=== PATIENT | male | born 1995 ===

== ENCOUNTER 2017-10-03 23:39 | Inpatient (IN) | payer SELFPAY ==
[2017-10-04] MEDS ORDERED: Lorazepam 2 MG/ML VIAL ONE ×3 (00:07→06:09)
[2017-10-04 00:27] LABS: #Lymphocytes 0.9 thou/uL (1.20-3.40); #Monocytes 0.4 thou/uL (0.11-0.59); #Neutrophils 8.9 thou/uL (1.40-6.50); %Basophils 0.4 % (0.0-1.0); %Eosinophils 0.1 % (0.0-10.0); %Monocytes 3.7 % (0.0-10.0); Hematocrit 48.5 % (42.0-52.0); Mean Platelet Volume 7.6 fL (7.4-10.4); Red Blood Cell (RBC) Count 5.02 mill/uL (4.70-6.10); White Blood Cell (WBC) Count 10.2 thou/uL (4.8-10.8)
[2017-10-04 00:46] LABS: ALT (SGPT) 24 U/L (8-55); AST (SGOT) 21 U/L (5-34); Alkaline Phosphatase 78 U/L (40-150); Anion Gap 16 mmol/L (10-20); BUN (Urea Nitrogen) 12 mg/dL (8.9-20.6); Bilirubin, Total 0.8 mg/dL (0.2-1.2); CK (CPK) 265 U/L (30-200); Calc. Creatinine Clearance 0 mL/min (70-130); Calcium 9.9 mg/dL (7.8-10.44); Carbon Dioxide 22 mmol/L (22-29); Chloride 103 mmol/L (98-107); Estimated GFR-MDRD Greater than 90; Globulin 2.5 g/dL (2.4-3.5); Magnesium 2.2 mg/dL (1.6-2.6); Protein, Total 7.1 g/dL (6.0-8.3)
[2017-10-04 00:47] LABS: Acetaminophen Less than 6.0 mcg/mL (10.0-30.0); Salicylate Less than 8.0 mg/dL (15.0-30.0)
[2017-10-04 00:49] LABS: Troponin I Less than 0.010 ng/mL (< 0.028)
[2017-10-04 01:53] LABS: Bilirubin Negative (Negative); Blood, Urine Negative (Negative); Glucose, Urine (Dipstick) 100 mg/dL (Negative); Ketone, Urine 40 mg/dL (Negative); Nitrite Negative (Negative); Protein, Urine (Dipstick) Negative (Neg-Trace); Urobilinogen 0.2 mg/dL (0.2-1.0)
[2017-10-04 02:14] LABS: Amphetamine Detected (NotDetected); Methadone Not Detected (NotDetected); Methamphetamine Not Detected (NotDetected)
[2017-10-04] MEDS ORDERED: Acetaminophen 325 MG TAB PO PRN (04:47)
[2017-10-04] MEDS ORDERED: Acetaminophen 650 MG Suppository PR PRN (04:47)
[2017-10-04] MEDS ORDERED: Senokot 8.6 MG TAB PO PRN (04:47)
[2017-10-04] MEDS ORDERED: Calcium Carbonate 500 MG ChewTAB PO PRN (04:47)
[2017-10-04] MEDS ORDERED: Ondansetron ODT 4 MG TAB PO PRN (04:47)
[2017-10-04] MEDS ORDERED: Ondansetron HCl/PF 4 MG/2 ML Vial IVP PRN (04:47)
[2017-10-04] MEDS ORDERED: cloNIDine 0.1 MG TAB PO PRN (04:50)
[2017-10-04] MEDS ORDERED: Eucerin (Mineral Oil/Petrolatum,White) 30 gm Jar TOP PRN (04:54)
[2017-10-04] MEDS ORDERED: Diabetic Tussin 200 MG/10 ML UDCUP PO PRN (04:54)
[2017-10-04] MEDS ORDERED: hydrALAZINE 20 MG/ML VIAL SLOW IVP PRN (04:54)
[2017-10-04] MEDS ORDERED: Loratadine 10 MG TAB PO PRN (04:54)
[2017-10-04] MEDS ORDERED: Lorazepam 2 MG/ML VIAL SLOW IVP PRN ×2 (04:56→06:33)
[2017-10-04] MEDS ORDERED: cloNIDine 0.1mg/24 Hour PATCH TD SCH (05:00)
[2017-10-04] MEDS ORDERED: Lorazepam 2 MG/ML VIAL SLOW IVP SCH ×2 (05:00→06:45)
[2017-10-04] MEDS ORDERED: Dextrose 5 %-0.45 % NaCl 1,000 ML IV SCH (05:00)
--- NOTE | 2017-10-04 05:09 | HP ---
DATE OF ADMISSION: 10/04/2017 PRIMARY CARE PHYSICIAN: Graciela duffy. CHIEF COMPLAINT: Drug overdose. HISTORY OF PRESENT ILLNESS: Patient is a 21-year-old male with ADHD on Adderall presented to the [facility] room after drug overdose. The patient took 20 tablets of 20 mg Adderall at home after argumen t with his family. It is unclear what time this happened. He also refused activated charcoal in the emergency room. At this time, patient is restless. Not much information is available from the yana ent. In the emergency room, initial vital signs showed temperature 99.1, respirations 20, pulse rate of 14 6 with a blood pressure 159/113 with O2 saturation 99% on room air. His EKG showed sinus tachycardia . Urine drug screen was positive for amphetamines and cannabis. He received IV fluids with Ativan. He has received total of 4 mg Ativan so far. PAST MEDICAL HISTORY: 1. ADHD. 2. Anxiety and depression. PAST SURGICAL HISTORY: Cannot be obtained from the patient due to current cognitive status. ALLERGIES: Cannot be obtained from the patient due to current cognitive status. HOME MEDICATIONS: Cannot be obtained from the patient due to current cognitive status. SOCIAL HISTORY: Cannot be obtained from the patient due to current cognitive status. FAMILY HISTORY: Cannot be obtained from the patient due to current cognitive status. REVIEW OF SYSTEMS: Cannot be obtained from the patient due to current cognitive status. No family a t the bedside. PHYSICAL EXAMINATION: VITAL SIGNS: As discussed above. GENERAL: A 21-year-old male, restless. HEENT: Head, atraumatic, normocephalic. Sclerae are anicteric. Moist mucous membrane. No oral les ion. NECK: Supple. No JVD appreciated. No carotid bruit. LUNGS: Clear to auscultation bilaterally. No wheezing or rales. HEART: S1, S2 present. Tachycardic. No rubs, gallops appreciated. ABDOMEN: Soft, bowel sounds present. No rebound or guarding. EXTREMITIES: No edema or calf tenderness. NEUROLOGIC/PSYCHIATRIC: Cannot be done adequately due to current cognitive status. He follows comma nd to some extent. He is also moving his extremities appropriately. SKIN: Warm and dry. LYMPH NODES: No palpable lymph nodes in the neck. PERIPHERAL VASCULAR: Radial pulses palpable bilaterally. MUSCULOSKELETAL: No joint swelling or tenderness. LABORATORY AND X-RAY FINDINGS: CBC showed WBC 10.2 with hemoglobin 16.8, hematocrit 48.5, platelets 290. Troponins were negative. Urinalysis was negative. Plasma alcohol was less than 10. EKG by my review as discussed above. IMPRESSION: 1. Adderall overdose/suicidal attempt. 2. Anxiety and depression. 3. Attention deficit hyperactivity disorder. 4. Hypertensive urgency secondary to #1. 5. Sinus tachycardia secondary to #1. 6. Toxic metabolic encephalopathy secondary to #1. PLAN: The patient will be monitored in the intermediate care unit. We will continue benzodiazepines as needed for anxiety. We will control blood pressure with clonidine and nitropatch. If this is un successful, the patient will require phentolamine with or without nitroprusside drip. We will place him on seizure precautions. We will monitor CK level. Critical care consultation. Suicide precauti ons. Plan of care was discussed with the patient. We will discuss the plan with the family when they arri ve.
[2017-10-04] MEDS ORDERED: cloNIDine 0.1 MG TAB ONE ×2 (05:17→05:31)
[2017-10-04] MEDS ORDERED: Nitroglycerin 2% Ointment 1 INCH/1 GM Packet ONE (05:17)
[2017-10-04] MEDS ORDERED: Nitrazine Tape 1 ROLL ONE (05:18)
[2017-10-04] MEDS ORDERED: diphenhydrAMINE 50 MG/ML VIAL ONE (06:23)
[2017-10-04] MEDS ORDERED: Famotidine/PF 20 mg/2ml Vial SLOW IVP SCH (09:00)
[2017-10-04] MEDS ORDERED: Docusate 100 MG CAP PO SCH (09:00)
[2017-10-04] MEDS ORDERED: Famotidine/PF 20 mg/2ml Vial ONE (09:27)
[2017-10-04] MEDS: cloNIDine 0.1 MG TAB PO SCH ×3 (10:00→21:39)
[2017-10-04] MEDS: Nitroglycerin 2% Ointment 1 INCH/1 GM Packet TOP SCH ×3 (10:00→21:39)
[2017-10-04 11:02] VITALS: BMI 29.9
[2017-10-04] MEDS: Lorazepam 2 MG/ML VIAL SLOW IVP PRN ×2 (11:55→13:29)
[2017-10-04] MEDS ORDERED: Lorazepam 1 MG TAB PO PRN (13:16)
[2017-10-04] MEDS ORDERED: Haloperidol Lactate 5 MG/ML VIAL IM PRN (13:16)
--- NOTE | 2017-10-04 15:19 | CON ---
DATE OF SERVICE: 10/04/2017 SERVICE: Pulmonary Medicine. REASON FOR CONSULTATION: ICU patient. HISTORY OF PRESENT ILLNESS: The patient is a 21-year-old white male with past medical history signif icant for ADHD. He is on Adderall out of the hospital. He had some suicidal ideation and ultimately took several doses of his 20 mg Adderall tablets. He presented to the emergency department and was subsequently tucked in the ICU for close monitoring. The patient is going to be quite a handful. PAST MEDICAL HISTORY: 1. ADHD. 2. Anxiety disorder. 3. Major depressive disorder. PAST SURGICAL HISTORY: Unknown. ALLERGIES: No known drug allergies. MEDICATIONS: List of his inpatient medications was reviewed. Multiple updates were made. SOCIAL HISTORY: This cannot be obtained presently because the patient's cognitive impairment. FAMILY HISTORY: Unknown. REVIEW OF SYSTEMS: This cannot be obtained presently. PHYSICAL EXAMINATION: VITAL SIGNS: Afebrile, pulse 150, respirations 24, saturation 98% on room air, blood pressure 147/10 0. HEENT: Normocephalic, atraumatic. Sclerae are white, conjunctivae pink. Oral and nasal mucosa is m oist without lesions. LUNGS: Decent air entry. There is no prolonged expiratory phase, wheezing, rhonchi or crackles. HEART: Tachycardic. Regular. ABDOMEN: Soft, nontender, nondistended, bowel sounds positive. MUSCULOSKELETAL: No cyanosis or clubbing. No pitting in the bilateral lower extremities. NEUROLOGIC: Grossly nonfocal. LABORATORY DATA: WBC 10.2, hemoglobin 16.8, platelets 290,000. Basic metabolic profile, liver funct ion studies are essentially unremarkable except for CK is elevated 265. Troponin is negative x1. Ur inalysis is unremarkable except for ketones and glycosuria. Urine drug screen is positive for cannab inoids and amphetamines. ASSESSMENT: 1. Adderall overdose. 2. Suicide attempt. 3. Metabolic encephalopathy, DISCUSSION AND PLAN: The patient is having active hallucinations. He is hypervigilant and hyper-chelsea rt. He has removed his IVs on multiple occasions. He continues to remove his blood pressure cuff an d other things as well. As such, we are going to try to minimize anything that is attached to the pa tient for his own safety. Haldol and Ativan will be provided on a p.r.n. basis and we will make an a ttempt not to use it if possible. The patient will remain in the ICU until the effects of his stimul ant wears off.
--- NOTE | 2017-10-04 16:25 | PDOC.PN ---
- Subjective Encounter Start Date: 10/04/17 Encounter Start Time: 16:20 Subjective: f/u for suicide attempt and OD of Adderall. Extremely agitated in ED and -: CCU requirinng chemical/mechanical restraint. Currently resting with Haldol -: and Ativan. - Objective Resuscitation Status: Resuscitation Status FULL:Full Resuscitation MAR Reviewed: Yes Vital Signs & Weight: Vital Signs (12 hours) Temp Pulse Resp BP Pulse Ox 10/04/17 13:29 136/75 10/04/17 12:00 98.5 F 10/04/17 11:47 98.7 F 10/04/17 10:00 98.7 F 115 H 22 H 98 10/04/17 07:56 98 Most Recent Monitor Data Heart Rate from ECG 104 NIBP 95/40 NIBP BP-Mean 60 Respiration from ECG 17 SpO2 98 I&O: 10/03/17 10/04/17 10/05/17 06:59 06:59 06:59 Intake Total 696 Output Total 1100 Balance -404 Result Diagrams: 10/04/17 00:17 10/04/17 00:17 Additional Labs: Laboratory Tests 10/04/17 10/04/17 10/04/17 00:17 00:17 01:33 Creatine Kinase 265 H Ur Amphetamines Screen Detected H U Cannabinoids Screen Detected H Plasma Alcohol Less than 10 EKG Reviewed by me: Yes (Tele - Sinus tach in low 100's) Phys Exam - Physical Examination sleeping, restrained HEENT: oral pharynx no lesions Neck: no JVD, supple Respiratory: no wheezing, clear to auscultation bilateral tachycardic Gastrointestinal: soft, non-tender, no distention, positive bowel sounds Musculoskeletal: no edema, pulses present Skin: normal turgor, cap refill <2 seconds Dx/Plan (1) Intentional overdose of drug in tablet form Code(s): T50.902A - POISONING BY UNSP DRUG/MEDS/BIOL SUBST, SELF-HARM, INIT Status: Acute Comment: s/p Adderall OD, supportive measures, IVF, sedation (2) Suicide attempt Status: Acute Comment: [facility] once clinically stabilized (3) Cannabis use disorder, mild, abuse Code(s): F12.10 - CANNABIS ABUSE, UNCOMPLICATED Status: Acute (4) Toxic encephalopathy Code(s): G92 - TOXIC ENCEPHALOPATHY Status: Acute Comment: Supportive, multifactorial process (5) ADHD Status: Chronic Comment: Referral for outpt psych care - Plan DVT proph w/SCDs Continue mech restraints -: Continue Ativan and Haldol -: [facility] consult once medically stabilized -: AM lab: CMP, CBC, Mg++, PO3, TSH -: Resume Venlafaxine 150mg daily when safe for po intake * .
[2017-10-05] MEDS: Nitroglycerin 2% Ointment 1 INCH/1 GM Packet TOP SCH (04:44)
[2017-10-05 05:21] LABS: #Basophils 0.1 thou/uL (0.0-0.2); #Eosinphils 0.1 thou/uL (0.0-0.7); #Lymphocytes 2.1 thou/uL (1.20-3.40); #Monocytes 0.8 thou/uL (0.11-0.59); #Neutrophils 3.8 thou/uL (1.40-6.50); %Basophils 1.4 % (0.0-1.0); %Eosinophils 1.9 % (0.0-10.0); %Lymphocytes 30.1 % (21.0-51.0); %Monocytes 11.9 % (0.0-10.0); Mean Platelet Volume 7.9 fL (7.4-10.4); Red Blood Cell (RBC) Count 4.75 mill/uL (4.70-6.10)
[2017-10-05 05:43] LABS: ALT (SGPT) 17 U/L (8-55); AST (SGOT) 14 U/L (5-34); Alkaline Phosphatase 65 U/L (40-150); Anion Gap 12 mmol/L (10-20); BUN (Urea Nitrogen) 12 mg/dL (8.9-20.6); Bilirubin, Total 1.5 mg/dL (0.2-1.2); CK (CPK) 110 U/L (30-200); Calc. Creatinine Clearance 125 mL/min (70-130); Calcium 9.7 mg/dL (7.8-10.44); Carbon Dioxide 30 mmol/L (22-29); Chloride 102 mmol/L (98-107); Estimated GFR-MDRD Greater than 90; Globulin 2.3 g/dL (2.4-3.5); Magnesium 2.5 mg/dL (1.6-2.6); Phosphorus 3.3 mg/dL (2.3-4.7); Protein, Total 6.5 g/dL (6.0-8.3)
[2017-10-05 11:33] VITALS: BP 122/60; TEMP 98.5
--- NOTE | 2017-10-05 12:55 | DIS ---
DATE OF ADMISSION: 10/04/2017 DATE OF DISCHARGE: 10/05/2017 DISCHARGE DIAGNOSES: 1. Question of suicidal ideation with Adderall ingestion. 2. Adderall overdose. 3. Cannabis use. 4. Toxic encephalopathy secondarily to #2. 5. Attention deficit hyperactivity disorder. CONSULTATIONS: [facility] service. PERTINENT LABORATORY AND X-RAY FINDINGS: Basic metabolic profile within normal limits. Total CK ran ged between 110-265. TSH 1.22. CBC showed MCV of 99. Urine drug screen dated 10/04/2017 positive f or amphetamines and cannabinoids. Plasma alcohol level less than 10. HOSPITAL COURSE: Patient was initially placed in the Critical Care Unit after presenting status post ingestion of apparent Adderall of approximately 20 tablets. Questionable suicidal ideation and alte red mentation with toxic/metabolic encephalopathy. The patient was given general supportive measures including intravenous fluids as well as Ativan for agitation and combativeness. Patient stabilized in the first 24 hours and was evaluated by the [facility] service. The patient was deemed safe for dischar ge home and to follow up with his outpatient psychiatrist in the [place], [place] area. The patien t overall clinically stabilized, tolerating regular oral intake, ambulatory without assistance or dif ficulty, and ready for discharge 10/05/2017. DISCHARGE MEDICATIONS: 1. Dextroamphetamine 20 mg p.o. t.i.d. 2. Venlafaxine 150 mg p.o. daily. FOLLOWUP: Patient will follow up with his primary psychiatrist in [facility], within 5- 7 days. CONDITION ON DISCHARGE: Stable. ACTIVITY: Ad liat. DIET: Regular. CODE STATUS: FULL. DISPOSITION: Home, 10/05/2017.
--- NOTE | 2017-10-05 16:42 | PRG ---
DATE OF SERVICE: 10/05/2017 SERVICE: Pulmonary Medicine. INTERVAL HISTORY: The patient is much improved compared to yesterday. He still is a little bit on e dge. That being said, it is clear that he is no longer having any hallucinations. His blood pressur e and his heart rate are both settling down a touch. He is tolerating p.o. He is able to have a ful l conversation without difficulty. This morning, he is changing his story a little bit. He is sugge sting that he did not take this medication in the suicide attempt. Otherwise, medically he is doing very well. PHYSICAL EXAMINATION: VITAL SIGNS: Afebrile, pulse 93, blood pressure 122/60, respirations 16, saturation 98% on room air. GENERAL: Patient is awake, alert, in no apparent distress. LUNGS: Decent air entry. There is no prolonged expiratory phase. HEART: Normal rate and regular. ABDOMEN: Soft, nontender, nondistended, bowel sounds positive. MUSCULOSKELETAL: No cyanosis or clubbing. There is no pitting in the bilateral lower extremities. NEUROLOGIC: Grossly nonfocal. LABORATORY DATA: WBC 7.0, hemoglobin 15.8, platelets 213,000. Basic metabolic profile and liver fun ction studies are unremarkable. Total bilirubin, however, is gently up trending to 1.5. TSH is norm al. Urine drug screen is positive for amphetamines and cannabinoids. Otherwise, toxicology screen i s negative. ASSESSMENT: 1. Adderall overdose. 2. Suicide attempt, possible. 3. Metabolic encephalopathy, resolving. PLAN: At this point, the patient has no further requirement for inpatient Pulmonary or Critical Care opinion. As such, we will sign off. Once [facility] evaluates him, he will be medically stable for trans ition out of the hospital.
--- NOTE | 2017-10-24 13:49 | EKG ---
Test Reason : OD Blood Pressure : / mmHG Vent. Rate : 145 BPM Atrial Rate : 145 BPM P-R Int : 136 ms QRS Dur : 078 ms QT Int : 260 ms P-R-T Axes : 069 097 058 degrees QTc Int : 403 ms Sinus tachycardia Rightward axis Borderline ECG Confirmed by MINAL TANG ([id number]), editor dictionary LYDIA BANKS ([id number]) on 10/24/2017 1:48:56 PM Referred By: Confirmed By:MINAL TANG
== END 2017-10-05 17:08 | disposition home or self-care (01) | DRG 917 ==
LOC: EDBD 23:39 → ERS 23:39 → ERHOLD 10-04 04:03 → CCU 10-04 10:00 → T4-A 10-05 09:51
PROVIDERS: ADMIT Internal Medicine; ATTEND Internal Medicine
DX: T43.622A Poisoning by amphetamines, intentional self-harm, initial encounter (principal); G92 Toxic encephalopathy; F32.9 Major depressive disorder, single episode, unspecified; F41.9 Anxiety disorder, unspecified; I16.0 Hypertensive urgency; R00.0 Tachycardia, unspecified; F12.10 Cannabis abuse, uncomplicated; F90.9 Attention-deficit hyperactivity disorder, unspecified type; Y92.009 Unspecified place in unspecified non-institutional (private) residence as the place of occurrence of the external cause
CPT/HCPCS: 36415; 80053; 80306; 80307; 81003; 82550; 82553; 83735; 84100; 84443; 84484; 85025; 93005; 94760; 96361; 96374; 96375; 96376; A4216; J1200; J1630; J2060; S0028